=== PATIENT | female | born 1965 | race African-American/Black ===

== ENCOUNTER 2018-04-14 22:32 | Emergency (ER) | payer SELFPAY ==
[~2018-04-14] VITALS: Ht 160 cm; Wt 79.4 kg
[2018-04-14 22:41] VITALS: BP_SYST 130
[2018-04-14] MEDS ORDERED: NKM (22:43)
[2018-04-14] MEDS ORDERED: IBUPROFEN600 MG ORAL (22:46)
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
[2018-04-14 23:08] VITALS: BP 0/0
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
== END 2018-04-14 23:08 | disposition home or self-care (01) ==
LOC: EMR 22:51
DX: S16.1XXA Strain of muscle, fascia and tendon at neck level, initial encounter (principal); S40.012A Contusion of left shoulder, initial encounter; S40.011A Contusion of right shoulder, initial encounter; V43.52XA Car driver injured in collision with other type car in traffic accident, initial encounter; Y92.410 Unspecified street and highway as the place of occurrence of the external cause
CPT/HCPCS: 99284

== ENCOUNTER 2019-12-31 08:54 | Emergency (ER) | payer SELFPAY ==
[~2019-12-31] VITALS: Ht 160 cm; Wt 78.0 kg
[~2019-12-31 08:54] MED LIST: IBUPROFEN600 MG ORAL; NKM
[2019-12-31 09:07] VITALS: BP 121/81
--- NOTE | 2019-12-31 09:22 | Emergency Room Report ---
History of Present Illness General Chief Complaint: Eye Problems Source: Patient Present Illness HPI Patient presents with several days of right forehead tenderness to touch and also swelling of the right eye that got worse today. There is no change in her vision. She denies any fevers or chills. When she does not touch her forehead there is not tenderness. Denies any trauma. She reports the pain 4/10 when palpated and denies pain when is not touched. The pain is in her forehead more than in her eyelid. The forehead feels hot to the touch. No recent exposure to chemicals. The patient had shingles in the past. It involved the posterior aspect of her head as opposed to this area. She believes this is a different process. No fevers, chills, sore throat, chest pain, palpitations, nausea, vomiting, diarrhea, dysuria, abdominal pain, shortness of breath, joint pain, dizziness. 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 Reviewed Nursing Documentation: PMH: Agreed; PSxH: Agreed Nursing Documentation-PMH Past Medical History: No History, Except For Review of Systems All Other Systems: negative except mentioned in HPI Physical Exam Vital Signs Date Time Temp Pulse Resp B/P (MAP) Pulse Ox O2 Delivery O2 Flow Rate FiO2 12/31/19 09:07 98.1 99 15 121/81 (94) 94 Room Air Sp02 EP Interpretation: reviewed, normal General Appearance: well appearing, no apparent distress, GCS 15 Head: normocephalic Eyes: right eye other - Lid swelling with some erythema; bilateral eye PERRL, bilateral eye EOMI ENT: moist mucus membranes Neck: full range of motion, supple Respiratory: lungs clear Cardiovascular #1: regular rate, rhythm Cardiovascular #2: 2+ radial (R) Gastrointestinal: normal inspection Musculoskeletal: gait/station normal Neurologic: alert, transcription manager III-XII nml as tested, oriented x3, sensory intact, grossly normal - Grosssly normal neurologic exam Psychiatric: mood/affect normal Skin: warm/dry, other - Erythema right side of forehead and minimally right eyelid Medical Decision Making Diagnostic Impression: Primary Impression: Cellulitis of forehead ER Course Patient presents with upper lid swelling and forehead tenderness with slight erythema and swelling. There is no abscess. This appears to be cellulitis. There is no obvious rash or vesicular lesions. The eye is not involved at this time and not tender. There is no injection. Her vision is normal is according to her. The diagnosis clinical. There is a cellulitis involving the forehead and there is swelling of the upper eyelid. Extraocular motions are full and nontender. This excludes periorbital cellulitis. Bactrim Keflex and bacitracin are indicated. Patient's tetanus is up-to-date. Discussed treatment plan with patient. Patient stable for outpatient observation and treatment. Last Vital Signs Date Time Temp Pulse Resp B/P (MAP) Pulse Ox O2 Delivery O2 Flow Rate FiO2 12/31/19 09:07 98.1 15 121/81 94 Room Air 12/31/19 09:07 99 Status: improved Disposition: HOME, SELF-CARE Condition: Improved Scripts Bacitracin (Bacitracin) 28.4 Gm Oint...g. 1 APPLIC TOPIC BID, #20 GM Prov: Juan Seth MD 12/31/19 Ibuprofen* (MOTRIN*) 600 Mg Tablet 600 MG ORAL Q6H PRN for FOR PAIN, #16 TAB 0 Refills Prov: Juan Seth MD 12/31/19 Cephalexin* (KEFLEX*) 500 Mg Capsule 500 MG ORAL EVERY 6 HOURS, #28 CAP Prov: Juan Seth MD 12/31/19 Trimethoprim/Sulfamethoxazole 160/800* (BACTRIM DS TABLET*) 1 Each Tablet 1 TAB ORAL Q12H, #14 TAB 0 Refills Prov: Juan Seth MD 12/31/19 Juan Seth MD Dec 31, 2019 09:22
[2019-12-31] MEDS ORDERED: CEPHALEXIN500 MG ORAL (09:24)
[2019-12-31] MEDS ORDERED: IBUPROFEN600 M1 ORAL (09:24)
[2019-12-31] MEDS ORDERED: BACTRIM DS TAB1 EAC1 ORAL (09:24)
[2019-12-31] MEDS ORDERED: BACITRACIN15 GM TOPIC (09:26)
[2019-12-31] MEDS ORDERED: Cephalexin 500mg cap ORAL ONE (09:30)
[2019-12-31] MEDS ORDERED: Bacitracin Oint UD TOPIC ONE (09:30)
[2019-12-31] MEDS ORDERED: Bactrim-DS 1 tab ORAL ONE (09:30)
--- NOTE | 2019-12-31 09:35 | NUR ---
ED Nurse Note: Patient is being discharged from medical care. Awake, alert and oriented x4. After care instructions were given. Patient verbalized understanding of After care instructions. ID band was removed. Patient ambulated out with all personal belongings with steady gait.
== END 2019-12-31 09:35 | disposition home or self-care (01) ==
LOC: EMR 09:22
DX: L03.211 Cellulitis of face (principal); Z91.013 Allergy to seafood; F17.200 Nicotine dependence, unspecified, uncomplicated
CPT/HCPCS: 99282